=== PATIENT | male | born 1945 | race Caucasian/White ===

== ENCOUNTER 2017-10-08 22:07 | Emergency (ER) | payer MEDICARE, BC ==
[~2017-10-08] VITALS: Ht 170.2 cm; Wt 73.5 kg
--- NOTE | 2017-10-08 22:27 | NUR ---
Patient walked in to ER c/o left eye blindness for a period of approximately 5 minutes which occurred 3 hours [employer]. Patient A/O x4, ambulatory with a steady gait, patient states no symptom or complaint at this time. To room 4B.
--- NOTE | 2017-10-08 22:52 | NUR ---
ERMD at bedside for MSE.
--- NOTE | 2017-10-08 23:00 | NUR ---
CHRISTYD requests to activate TELENEUROLOGY however does NOT wish to activate code stroke. [facility] CCT/Telehealth called and staff was informed that CT and CTA would need to be performed prior to consulting with neurologist. MARIE notified.
--- NOTE | 2017-10-08 23:06 | NUR ---
Call placed to Dr. Badillo (NEUROLOGY), message left for return call.
--- NOTE | 2017-10-08 23:21 | NUR ---
MARIE speaking to Dr. Allison, patient's MD who is scheduled to perform prostate surgery on SATURDAY.
[2017-10-08 23:24] LABS: BASOPHILS % (AUTO) 0.4 % (0.0-2.0); EOSINOPHILS # (AUTO) 0.1 K/uL (0.0-0.7); EOSINOPHILS % (AUTO) 1.4 % (0.0-7.0); HEMATOCRIT 47.2 % (36.7-47.1); HEMOGLOBIN 16.1 g/dL (12.5-16.3); LYMPHOCYTES # (AUTO) 1.5 K/uL (20.0-40.0); LYMPHOCYTES % (AUTO) 27.4 % (20.5-51.5); MEAN CORPUSCULAR HEMOGLOBIN 32.1 uug (23.8-33.4); MEAN CORPUSCULAR HGB CONC 34 g/dL (32.5-36.3); MEAN CORPUSCULAR VOLUME 93.9 fL (73.0-96.2); MONOCYTES # (AUTO) 0.6 K/uL (2.0-10.0); NEUTROPHILS # (AUTO) 3.3 K/uL (1.8-8.9); NEUTROPHILS % (AUTO) 59.8 % (38.5-71.5); PLATELET COUNT (AUTO) 130 K/uL (152-348); RED BLOOD CELL COUNT(AUTO) 5.02 MIL/uL (4.06-5.63); WHITE BLOOD COUNT (AUTO) 5.5 K/uL (3.6-10.2)
[2017-10-08 23:40] LABS: CARBON DIOXIDE 30 mmol/L (21-32); CHLORIDE 105 mmol/L (98-107); CREATININE 1.5 mg/dL (0.6-1.3); GLUCOSE 100 mg/dL (74-106); POTASSIUM 4.2 mmol/L (3.5-5.1); UREA NITROGEN, BLOOD 33 mg/dL (7-18)
[2017-10-08] MEDS ORDERED: IV NORMAL SALINE 1000 ML BAG IV ONE (23:45)
[2017-10-08 23:46] LABS: ALANINE AMINOTRANSFERASE 41 U/L (16-63); ALKALINE PHOSPHATASE 66 U/L (50-136); ASPARTATE AMINOTRANSFERASE 34 U/L (15-37); BILIRUBIN,DIRECT 0.1 mg/dL (0.0-0.2); BILIRUBIN,TOTAL 0.6 mg/dL (0.2-1.0); CHOLESTEROL 142 mg/dL (<200); HDL CHOLESTEROL 64 mg/dL (40-60); TOTAL PROTEIN, SERUM 7.7 g/dL (6.4-8.2); TRIGLYCERIDES 46 MG/DL (30-150)
--- NOTE | 2017-10-08 23:53 | NUR ---
Pt out of ER for CT via [facility].
[2017-10-09] MEDS ORDERED: IOHEXOL 350 100 ML INFUS..BTL ONE (00:01)
[2017-10-09] MEDS ORDERED: NORMAL SALINE FLUSH 10 ML DISP.SYRIN ONE (00:01)
[2017-10-09] MEDS ORDERED: IV NORMAL SALINE 100 ML ONE (00:01)
--- NOTE | 2017-10-09 00:20 | NUR ---
Pt back to ER from CT via [facility].
--- NOTE | 2017-10-09 01:15 | NUR ---
Patient's facesheet and clinical details faxed to [facility] Telestroke.
--- NOTE | 2017-10-09 01:33 | NUR ---
Call received from [facility] TELENEUROLOGY who stated the physician would not consult on the case because "there is no acute process to consult about." Neurologist recommended amdission to hospital with hospital neurology consultation if desired by MARIE. MARIE notified
--- NOTE | 2017-10-09 01:40 | NUR ---
Call placed to [facility], Dr. Lyon speaking with MARIE.
--- NOTE | 2017-10-09 02:09 | NUR ---
Patient discharged to home in stable conditon. Written and verbal after care instructions given. Patient verbalizes understanding of instructions. Pt ambulated out of ER with steady gait, VSS, all belongings taken. No acute signs of distress.
[2017-10-09 02:12] VITALS: BP 156/78
== END 2017-10-09 02:13 | disposition home or self-care (01) ==
LOC: ER 22:14
DX: G45.3 Amaurosis fugax (principal); E78.5 Hyperlipidemia, unspecified; I10 Essential (primary) hypertension; J44.9 Chronic obstructive pulmonary disease, unspecified; H54.62 Unqualified visual loss, left eye, normal vision right eye
CPT/HCPCS: 36415; 70030-TC; 70496; 71045; 85025; 85730; 93005; A4663; J3490; J7030; Q9967